=== PATIENT | male | born 1985 | race Caucasian/White ===

== ENCOUNTER 2018-03-18 11:20 | Emergency (ER) | payer SELFPAY ==
[~2018-03-18] VITALS: Ht 170.2 cm; Wt 95.0 kg
[2018-03-18 11:28] VITALS: TEMP 36.6; Ht 170.2 cm; Wt 95.0 kg
--- NOTE | 2018-03-18 12:08 | DIAGNOSTIC IMAGING REPORT ---
RIGHT FOOT 3 VIEWS HISTORY: Right foot pain. COMPARISON: None. FINDINGS: There is no fracture or dislocation. Focal dorsal soft tissues along within the forefoot. No radiopaque foreign bodies. The Lisfranc joint is well aligned. IMPRESSION: Focal dorsal soft tissue swelling within the forefoot. No fractures. Electronically signed by: Akash Das M.D. 03/18/2018 12:06 PM Dictated Date/Time: 03/18/2018 12:05 PM
--- NOTE | 2018-03-18 12:43 | DIAGNOSTIC IMAGING REPORT ---
R EXTREMITY NONVASCULAR LIMITED CLINICAL HISTORY: 33 years-old Male presenting with DORSAL RIGHT FOOT SOFT TISSUE MASS. TECHNIQUE: Real-time grayscale Doppler ultrasound imaging of the right foot was performed for a focused evaluation at the site of clinical concern. Color Doppler ultrasound imaging was also performed. COMPARISON: 03/18/2018. FINDINGS: At the site of clinical concern along the dorsum of the forefoot, significant subcutaneous edema with dilated lymphatics evident. Additionally there is a multilobular 8.4 x 1.2 x 5.6 cm collection, which is complex. No significant hyperemia surrounds this collection. IMPRESSION: 1. 8.4 x 1.2 x 5.6 cm collection along the dorsum of the right foot with significant surrounding subcutaneous edema. This may represent an abscess or hematoma. Sterility cannot be confirmed. Electronically signed by: Koby Jo M.D. 03/18/2018 12:42 PM Dictated Date/Time: 03/18/2018 12:36 PM
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
[2018-03-18 14:17] VITALS: BP 130/95; PULSE 73; O2SAT 97
== END 2018-03-18 14:18 | disposition home or self-care (01) ==
LOC: C.EDB 11:20 → C.EDD 14:18
DX: M79.671 Pain in right foot (principal); R22.41 Localized swelling, mass and lump, right lower limb; I10 Essential (primary) hypertension; Z87.01 Personal history of pneumonia (recurrent)